=== PATIENT | male | born 1985 | race Caucasian/White ===

== ENCOUNTER 2017-03-09 20:07 | Emergency (ER) | payer SELFPAY ==
[~2017-03-09] VITALS: Ht 180.3 cm; Wt 71.0 kg
[~2017-03-09 20:07] MED LIST: ACYC400T2 PO; HYDR-4150 PO; LOPE2TAB32 PO; NPR500T PO; ONDA4TAB9 PO
[2017-03-09 20:12] VITALS: BP 124/77; PULSE 78; RESP 18; O2SAT 98
--- NOTE | 2017-03-09 21:28 | ED.REPORT ---
HPI-Extremity Problem Lower Date of Service Mar 09, 2017 ED Provider: Joselo Jones Patient is an otherwise healthy 31 year old male who presents to the ED complaining of L ankle pain s/p jumping on a trampoline and rolling his ankle. Associated symptoms include mildly decreased sensation in his L toes. He denies extremity numbness, extremity pain, or any other symptoms. Nursing Notes Stated Complaint: INJURY TO ANKLE Chief Complaint: Extremity Trauma Nursing Notes Reviewed: Yes Allergies: Coded Allergies: No Known Allergies (Verified , 09/21/15) Scheduled Acyclovir (Acyclovir) 400 Mg Tablet 400 MG PO TID Hydrocodone/Acetaminophen ([place] 5-325 Tablet) 1 Each Tablet 1 EACH PO q4-6hrs Scheduled PRN Ibuprofen (Ibuprofen) 600 Mg Tablet 600 MG PO QID PRN PRN For Pain Loperamide (Loperamide) 2 Mg Tablet 2 MG PO DIRECTED PRN PRN For Diarrhea or Loose Stool Initially take 2 tablets by mouth followed by one tablet after each loose stool max of 8 tablets a day. Naproxen (Naproxen) 500 Mg Tab 500 MG PO BID PRN PRN For Pain Ondansetron ODT (Zofran ODT) 4 Mg Tablet 4 MG PO Q4H PRN PRN For Nausea General Time Seen by MD: 21:28 Chief Complaint Ankle injury left Hx Obtained From: Patient Arrived By: Wheelchair Onset Occurred: Just prior to arrival Location: : Ankle left Quality: Painful Severity: Current: Moderate Severity: Maximum: Moderate Pertinent Negative: Pt denies other symptoms Immunizations: Tetanus up to date Similar Sx Previous: Yes Past Medical History Past Medical History None Past Surgical History denies Smoking History Former Smoker Social History Alcohol Use: 1-3 per day Drug Use: THC Other Social History: Good social support, Local resident Occupation lives with sister and niece Ambulatory Status Independent Review of Systems Musculoskeletal: Reports: Joint pain, Denies: Extremity pain, Extremity swelling Neurologic: Reports: Numbness (L toes only ) Complete sys rev & neg: except as marked. Physical Exam Initial Vital Signs Vital Signs (First) Date Time Temp Pulse Resp B/P Pulse Ox O2 Delivery O2 Flow Rate FiO2 03/09/17 20:12 37.2 78 18 124/77 98 Room Air Initial VS: Reviewed, Vital signs normal General/Constitutional: Well-developed, Well-nourished Head / Eyes: Atraumatic, Normocephalic Neck: Full range of motion Respiratory: No respiratory distress Cardiovascular: Intact distal pulses Skin: Warm, Dry Neurologic: Alert, Oriented, Nonfocal Psychiatric: Mood/affect normal, Behavior normal, Normal thought content Lower Extremity / Pelvis / MS: Inspection NL, Full range of motion, No deformity, Neurologic intact, Vascular intact Ankle / Foot: No deformity, Neurologic intact, Vascular intact mild swelling and tenderness about the L lateral malleolus. subjective decreased sensation to L toes. Interpretation & Diagnostics X-Ray Interpretation Xray Interpretation: No fracture X-Ray Ordered: Ankle left Interpretation / Wet Read by: Interpret - ED physician Re-Eval/Medical Decision Med Decision/Clinical Course 31-year-old with prior left ankle injury presents with a rolled ankle and significant swelling and pain. X-ray reveals calcification in the tibial fibular ligament consistent with his prior injuries, but no acute fracture. Placed in Buzz wrap, Aircast splint, and crutches. Home with ibuprofen and Vicodin as needed. Follow up with PCP. Re-Evaluation/Progress : Time of Eval: 21:37 Evaluation: Capillary refill normal Re-Evaluation/Progress Note: Discussed plan for dishcarge with splint and crutches. Patient understands and agrees with plan. All questions addressed at this time. Counseled Regarding: Diagnosis, Lab results, Need for follow-up, When/why to return to ED Discharge & Departure Impression: Primary Impression: Left ankle sprain Encounter type: initial encounter Involved ligament of ankle: calcaneofibular ligament Qualified Code: S93.412A - Sprain of calcaneofibular ligament of left ankle, initial encounter Disposition: Home Discharge Condition All VS Reviewed: Yes Condition: Improved Additional Instructions: Ice frequently for the first twenty-four hours. Elevate whenever possible to reduce swelling. Use Buzz wrap and Aircast splint and then a shoe whenever up. Removal of that to sleep. Crutches whenever up until able to bear weight in the splint without significant pain. Use the splint an additional week or two to support the ankle until it heals more fully. Referrals: [facility] (PCP) Scribe Attestation Portions of this note were transcribed by Tony Chaves. I, Dr. Jones personally performed the history, physical exam and medical decision-making; I reviewed and confirmed the accuracy of the information in the transcribed note. Signed by: Tony Chaves 03/09/2017, 9400 copies to: [facility] Adam Jones MD Mar 09, 2017 21:28 TONY CHAVES Mar 09, 2017 21:37
[2017-03-09] MEDS ORDERED: HYDROcodone-APAP 5-325 mg Tablet PO ONE (21:40)
[2017-03-09] MEDS ORDERED: IBUP-1827 PO (21:40)
[2017-03-09] MEDS ORDERED: _HYDROcodone/APAP 5-325 mg Tablet PO PRN (21:40)
--- NOTE | 2017-03-09 22:01 | DRSVH ---
PROCEDURE: X-RAY LEFT ANKLE, MINIMUM THREE VIEWS ([id number]) INDICATIONS: fall TECHNIQUE: 3 views of the ankle were acquired. COMPARISON: [facility], CR, XR ANKLE 3VW LT, 05/13/2015, 15:44. FINDINGS: Bones: No fractures or dislocations. There is benign appearing periosteal reaction along the lateral cortex of the distal tibia, probably related to prior injury. Ankle mortise is normally aligned. No suspicious bony lesions. Soft tissues: No tibiotalar joint effusion. Achilles tendon appears normal. IMPRESSION: No fracture or dislocation. If clinical symptoms persist or clinical suspicion for patho logy is high, a repeat examination in 7-10 days, or advanced imaging such as CT or MRI is suggested f or further evaluation. Dictated by: Yamileth Stanton M.D. on 03/09/2017 at 21:59 Approved by: Yamileth Stanton M.D. on 03/09/2017 at 22:00
[2017-03-09 22:38] VITALS: BP 117/74; PULSE 60; RESP 16; O2SAT 98
== END 2017-03-09 22:40 | disposition home or self-care (01) ==
LOC: SED 20:07
DX: S93.412A Sprain of calcaneofibular ligament of left ankle, initial encounter (principal); X50.9XXA Other and unspecified overexertion or strenuous movements or postures, initial encounter; Y93.44 Activity, trampolining; Y99.8 Other external cause status; Y92.017 Garden or yard in single-family (private) house as the place of occurrence of the external cause; F12.10 Cannabis abuse, uncomplicated; Z87.891 Personal history of nicotine dependence